=== PATIENT | male | born 1965 | race Caucasian/White ===

== ENCOUNTER 2018-05-13 17:48 | Inpatient (IN) | payer MEDICAID ==
[2018-05-13 20:47] LABS: BASO # 0.1 K/uL (0.0-0.2); BASO % 0.8 % (0.0-2.0); EOS # 0.3 K/uL (0.0-0.7); EOS % 4.1 % (0.0-4.0); HEMOGLOBIN 14.5 g/dL (12.0-18.0); LYMPH # 2.6 K/uL (1.0-4.3); LYMPH % 35.1 % (20.0-40.0); MEAN CORPUSCULAR HEMOGLOBIN 30.6 pg (27.0-31.0); MEAN CORPUSCULAR HGB CONC 34.3 g/dL (33.0-37.0); MEAN PLATELET VOLUME 7.8 fL (7.2-11.7); MONO # 0.6 K/uL (0.0-0.8); MONO % 7.9 % (0.0-10.0); NEUT # 3.8 K/uL (1.8-7.0); NEUT % 52.1 % (50.0-75.0); RBC 4.74 Mil/uL (4.40-5.90); RED CELL DISTRIBUTION WIDTH 13.1 % (11.5-14.5); WHITE BLOOD COUNT 7.3 K/uL (4.8-10.8)
[2018-05-13 20:57] LABS: URINE BILIRUBIN NEGATIVE (NEGATIVE); URINE BLOOD NEGATIVE (NEGATIVE); URINE CLARITY Hazy (Clear); URINE GLUCOSE (UA) NORMAL (Normal); URINE LEUKOCYTE ESTERASE NEG Leu/uL (Negative); URINE PROTEIN 1+ mg/dL (NEGATIVE)
[2018-05-13 21:05] LABS: BENZODIAZEPINES, UR NEGATIVE (NEGATIVE); PHENCYCLIDINE, UR NEGATIVE (NEGATIVE)
--- NOTE | 2018-05-13 21:07 | C.PDOC ---
History Of Present Illness Patient is a 53 year old male who presents to the ED requesting detox from heroin which he last did at 4pm today. He also admits to doing crack, cocaine, and drinking alcohol today. He denies any SI/HI, hallucinations, CP, SOB, or me dical complaints at the present moment. Time Seen by Provider: 05/13/18 19:59 Chief Complaint (Nursing): Substance Abuse History Per: Patient History/Exam Limitations: no limitations Suicide/Self Injury Attempted (Context): None Associated Symptoms: denies: Suicidal Thoughts, Suicidal Plan Involuntary Hold By: None Recent travel outside of the [place]: No Additional History Per: Patient Past Medical History Reviewed: Historical Data, Nursing Documentation, Vital Signs Vital Signs: Last Vital Signs Temp 98.2 F 05/13/18 20:55 Pulse 60 05/13/18 20:55 Resp 16 05/13/18 20:55 BP 126/74 05/13/18 20:55 Pulse Ox 98 05/13/18 20:55 - Medical History PMH: No Chronic Diseases Surgical History: No Surg Hx Family History: States: No Known Family Hx - Social History Hx Alcohol Use: Yes Hx Substance Use: Yes - Immunization History Hx Tetanus Toxoid Vaccination: No Hx Influenza Vaccination: No Hx Pneumococcal Vaccination: No Review Of Systems Constitutional: Negative for: Fever, Chills Cardiovascular: Negative for: Chest Pain Respiratory: Negative for: Shortness of Breath Psych: Negative for: Suicidal ideation, Other (HI/ hallucinations) Physical Exam - Physical Exam Appears: Non-toxic, No Acute Distress Skin: Normal Color, Warm, Dry Head: Atraumatic, Normacephalic Neck: Normal ROM, Supple Chest: Symmetrical, No Deformity Cardiovascular: Rhythm Regular, No Murmur Respiratory: Normal Breath Sounds, No Rales, No Rhonchi, No Wheezing Gastrointestinal/Abdominal: Soft, No Tenderness Neurological/Psych: Oriented x3 ED Course And Treatment - Laboratory Results Result Diagrams: 05/13/18 20:44 05/13/18 20:44 O2 Sat by Pulse Oximetry: 98 (on RA) Pulse Ox Interpretation: Normal Medical Decision Making Medical Decision Making: Plan: EKG Labs Urinalysis Patient evaluated by crisis, medically cleared, and accepted for detox by Dr. Ratliff. Disposition - Disposition Disposition: HOSPITALIZED Disposition Time: 22:28 Condition: STABLE - Clinical Impression Clinical Impression: Opiate abuse, continuous - Scribe Statement The provider has reviewed the documentation as recorded by the Corrieibchris Gabriel All medical record entries made by the Scribe were at my direction and personally dictated by me. I have reviewed the chart and agree that the record accurately reflects my personal performance of the history, physical exam, medical decision making, and the department course for this patient. I have also personally directed, reviewed, and agree with the discharge instructions and disposition.
[2018-05-13 21:08] LABS: ALB/GLOB RATIO 1.5 (1.0-2.1); ALBUMIN 4.4 g/dL (3.5-5.0); ALT/SGPT 30 U/L (21-72); AST/SGOT 37 U/L (17-59); BARBITURATES, UR POSITIVE (NEGATIVE); BLOOD UREA NITROGEN 11 mg/dL (9-20); CALCIUM 9.3 mg/dl (8.6-10.4); GFR NON-AFRICAN AMERICAN > 60; OPIATES, UR POSITIVE (NEGATIVE)
[2018-05-13 21:12] LABS: URINE COLOR YELLOW (YELLOW)
--- NOTE | 2018-05-13 22:43 | PCM.BM ---
<Perry Simental - Last Filed: 05/13/18 22:41> Treatment Plan Problems - Problems identified on initial assessmt knowledge deficit: substance use Date Initiated: 05/13/18 Time Initiated: 22:42 Assessment reference: NA Status: Active defensive coping Date Initiated: 05/13/18 Time Initiated: 22:42 Assessment reference: NA Status: Active chronic low self esteem Date Initiated: 05/13/18 Time Initiated: 22:45 Assessment reference: NA Status: Active Treatment assets and liabiliti Patient Assests: cooperative Patient Liabilities: substance abuse - Milieu Protocol Maintain good personal hygiene: daily Encourage regular showers, daily Remind patient to perform daily oral care, daily Assist patient to perform ADL's Maintain personal safety: every shift Educate patient to report safety concerns to staff, every shift Monitor environment for contraband/sharps Medication safety: Monitor for expected outcome, potential side effects: every shift, Assess barriers to learning: every shift, Assess readiness for medication education: every shift <Claudia Abebe - Last Filed: 05/14/18 13:00> Treatment Plan Problems - Problems identified on initial assessmt knowledge deficit: substance use Date Initiated: 05/13/18 Time Initiated: 22:42 Assessment reference: NA Status: Active defensive coping Date Initiated: 05/13/18 Time Initiated: 22:42 Assessment reference: NA Status: Active chronic low self esteem Date Initiated: 05/13/18 Time Initiated: 22:45 Assessment reference: NA Status: Active Problem 1 Date Initiated: 05/13/18 Time Initiated: 22:45 Assessment reference: NA Status: Active Family Contact Family involvement: No known Family/SO - Goals for Treatment Patient goals for treatment: Complete detox and transition to [facility] inpatient rehab. Discharge/Continuing Care - Education Needs Education Needs: Patient Medication, Patient Diagnosis/Disease Process, Patient Coping Skills, Patient Anger Management skills, Patient Placement options, Patient Community resources, Patient Other (diabetic care) - Discharge Discharge Criteria: Ability to care for self, No longer exhibiting s/s of withdrawal, Reduction of target symptoms Discharge to:: Substance Abuse Rehab - Treatment Team Participation Patient/Family/SO Statement: 05/14/18 12:59 "I need to go somewhere long-term..." Discussed with Family/SO: No Was Patient/Family/SO present at Treatment Team Meeting: Yes
[2018-05-14] MEDS ORDERED: Aluminum Hydroxide/Magnesium Hydroxide Susp (30 mL) PO PRN (09:47)
[2018-05-14] MEDS: Metoprolol Succinate 25 mg XL Tab PO SCH ×2 (11:00→17:25)
--- NOTE | 2018-05-14 13:00 | PCM.PSYCH ---
Initial Psychiatric Evaluation - Initial Psychiatric Evaluation Type of Admission: Voluntary Legal Status: Capacity Chief Complaint (in patient's own words): "Not doing well" History of Present Illness and Precipitating Events: Patient is seen, chart reviewed and case discussed with staff. Patient is a 53 YO male, currently single with four children ages 21-32. He is homeless, at the time living on the streets and unemployed. Admitted to detox unit for heroin, cocaine and alcohol use. He started using heroin 6 months ago, reports using 7 bags/day via sniffing and IV. His last use was 4 pm yesterday. He has never been to a detox facility and never had rehab. He is currently experiencing withdrawal symptoms of nausea, vomiting and chills. COWS>10 Of note, he OD'ed on fentanyl 1-2 months ago Patient also reports to using cocaine 2 bags/day, alcohol a bottle/day and smoking tobacco 1 pack per day. Psych hx: He denies any prior hospitalizations but he currently feels agitated, frustrated and anxious about his life. He has received depression medications in residential. He does not report suicidal or homicidal ideations now, no nuno or psychosis. Fam psych: Denies PHMx: DM - ignoring care bc of drug use Meds: Metformin, Gabapentin, metropolol, glimepiride Current Medications: Active Medications Generic Name Dose Route Start Last Admin Trade Name Freq PRN Reason Stop Dose Admin Al Hydrox/Mg Hydrox/Simethicone 30 ml 05/14/18 09:47 Maalox 30 Ml PO TID PRN Indigestion / Heartburn Clonidine HCl 0.1 mg 05/14/18 09:47 Catapres PO Q4 PRN COWS Score More or Equal to 5 Gabapentin 300 mg 05/14/18 10:00 05/14/18 11:00 Neurontin PO 300 mg BID MELVIN Administration Glimepiride 4 mg 05/14/18 10:00 05/14/18 11:00 Amaryl PO 4 mg ACB MELVIN Administration Hydroxyzine HCl 50 mg 05/14/18 09:45 Atarax PO Q6H PRN Anxiety Ibuprofen 600 mg 05/14/18 09:45 Motrin Tab PO Q6H PRN Pain, moderate (4-7) Loperamide HCl 2 mg 05/14/18 09:47 Imodium PO Q8 PRN Diarrhea Metformin HCl 1,000 mg 05/14/18 10:00 05/14/18 11:00 Glucophage PO 1,000 mg BIDCC MELVIN Administration Metoprolol Succinate 25 mg 05/14/18 10:00 05/14/18 11:00 Toprol Xl PO 25 mg BID MELVIN Administration Ondansetron HCl 4 mg 05/14/18 09:47 Zofran Tab PO Q8 PRN Nausea/Vomiting Pneumococcal Polyvalent Vaccine 0.5 ml 05/17/18 10:00 Pneumovax 23 Vaccine IM 05/17/18 10:01 .ONCE ONE Trazodone HCl 100 mg 05/14/18 09:45 Desyrel PO HS PRN Insomnia Past Psychiatric History - Past Psychiatric History Pertinent Medical Hx (Current Medical&Sleep Prob, Allergies): Allergies Allergy/AdvReac Type Severity Reaction Status Date / Time No Known Allergies Allergy Verified 05/13/18 18:10 Cyanocobalamin (Vitamin B-12) [Vitamin B-12] 1,000 mcg PO DAILY 05/13/18 Gabapentin 300 mg PO BID 05/13/18 Glimepiride [amaRYL] 4 mg PO DAILY 05/13/18 MetFORMIN [glucOPHAGE] 1,000 mg PO BID 05/13/18 Metoprolol Succinate 25 mg PO BID 05/13/18 Review of Systems - Psychiatric Psychiatric: Abnormal Sleep Pattern, Anhedonia, Anxiety, Change in Appetite, Depression, Difficulty Concentrating, Mood Swings. absent: Hallucinations, Homicidal Ideation, Paranoia, Suicidal Ideation Mental Status Examination - Personal Presentation Personal Presentation: Looks older than stated age - Affect Affect: Constricted - Motor Activity Motor Activity: Calm - Reliability in Providing Information Reliability in Providing Information: Good - Speech Speech: Organized - Mood Mood: Depressed, Anxious - Formal Thought Process Formal Thought Process: No Impairment - Cognitive Functions Orientation: Person, Place, Situation, Time Sensorium: Alert Attention/Concentration: Attentive Estimate of Intelligence: Average Judgement: Intact, as evidence by: Insight regarding need for hospitalization Memory: Recent intact, as evidence by: Ability to recall events of the day, Hood te intact, as evidenced by: Abilit to recall sig. 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 Attend groups and activities Supportive therapy and psychoeducation MD for abstinence CBT for relapse prevention Encourage MAT Refer to rehab or IOP, and self-help groups Teach healthy lifestyle methods, i.e. diet, exercise, meditation Smoking cessation with MD Nicotine patch if needed 34 min Projected ELOS: 4-5 days
[2018-05-14] MEDS ORDERED: Buprenorphine Hydrochloride 2 mg SL ONE ×2 (15:34→16:35)
[2018-05-15] MEDS: Metoprolol Succinate 25 mg XL Tab PO SCH ×2 (09:30→17:35)
[2018-05-15] MEDS: Buprenorphine Hydrochloride 2 mg SL SCH (09:31)
[2018-05-16] MEDS: Buprenorphine Hydrochloride 2 mg SL SCH (09:10)
[2018-05-16] MEDS: Metoprolol Succinate 25 mg XL Tab PO SCH ×2 (09:10→17:06)
--- NOTE | 2018-05-16 14:09 | PCM.PYCHPN ---
Psychiatric Progress Note - Psychiatric Progress Note Patient seen today, length of contact: 17 min Patient Chief Complaint: "So so" Problems Identified/Issues Discussed: The pt is seen, chart reviewed, case discussed with staff. The pt is compliant with medications and reports no side-effects. Symptoms are improving but needs more time to stabilize. Pt attends groups and activities. Support given, psycho-education provided. After care discussed. Medication Change: Yes (detox changes daily) Medical Record Reviewed: Yes Mental Status Examination - Cognitive Function Orientation: Person, Place, Situation, Time Memory: Intact Attention: WNL Concentration: Poor Association: WNL Fund of Knowledge: WNL - Mood Mood: Depressed, Anxious - Affect Affect: Constricted - Speech Speech: Appropriate - Formal Thought Process Formal Thought Process: No Impairment - Suicidal Ideation Suicidal Ideation: No - Homicidal Ideation Homicidal Ideation: No Goal/Treatment Plan - Goal/Treatment Plan Need for Continued Stay: Discharge may exacerbated symptoms, Severe functional impairment Progress Toward Problem(s) and Goals/Treatment Plan: Taper with subutex Gabapentin for augmentation Continue medical meds As needed medications All risks, benefits and alternatives of the meds discussed, and the pt agreed and understood. Attend groups and activities Supportive therapy and psychoeducation DE for abstinence CBT for relapse prevention Encourage MAT Refer to rehab or IOP, and self-help groups Teach healthy lifestyle methods, i.e. diet, exercise, meditation Smoking cessation with DE Nicotine patch if needed
--- NOTE | 2018-05-16 14:10 | PCM.PYCHPN ---
Psychiatric Progress Note - Psychiatric Progress Note Patient seen today, length of contact: 17 min Patient Chief Complaint: "So so" Problems Identified/Issues Discussed: The pt is seen, chart reviewed, case discussed with staff. The pt is compliant with medications and reports no side-effects. Symptoms are improving but needs more time to stabilize. Pt attends groups and activities. Support given, psycho-education provided. After care discussed. Medication Change: Yes (detox changes daily) Medical Record Reviewed: Yes Mental Status Examination - Cognitive Function Orientation: Person, Place, Situation, Time Memory: Intact Attention: WNL Concentration: Poor Association: WNL Fund of Knowledge: WNL - Mood Mood: Depressed, Anxious - Affect Affect: Constricted - Speech Speech: Appropriate - Formal Thought Process Formal Thought Process: No Impairment - Suicidal Ideation Suicidal Ideation: No - Homicidal Ideation Homicidal Ideation: No Goal/Treatment Plan - Goal/Treatment Plan Need for Continued Stay: Discharge may exacerbated symptoms, Severe functional impairment Progress Toward Problem(s) and Goals/Treatment Plan: Taper with subutex Gabapentin for augmentation Continue medical meds As needed medications All risks, benefits and alternatives of the meds discussed, and the pt agreed and understood. Attend groups and activities Supportive therapy and psychoeducation ME for abstinence CBT for relapse prevention Encourage MAT Refer to rehab or IOP, and self-help groups Teach healthy lifestyle methods, i.e. diet, exercise, meditation Smoking cessation with ME Nicotine patch if needed
--- NOTE | 2018-05-17 08:35 | PCM.PYCHDC ---
Mental Status Examination - Mental Status Examination Orientation: Person Discharge Summary - Discharge Note Laboratory Data: Abnormal Lab Results 05/17/18 07:33 POC Glucose (mg/dL) 113 H Consultations:: List each consultation separately and include: 1. Reason for request. 2. Findings. 3. Follow-up Summary of Hospital Course include:: 1. Description of specific treatment plan utilized for patients during their course of treatmen. 2. Summarize the time- course for resolution of acute symptoms and/or regressed behaviors. 3. Describe issues identified and worked on during hospitalization. 4. Describe medication utilized. 5. Describe medical problems identified and treated. 6. Reassessment of suicide risk Summary of Hospital Course: Patient is seen, chart reviewed and case discussed with staff. Patient is a 53 YO male, currently single with four children ages 21-32. He is homeless, at the time living on the streets and unemployed. Admitted to detox unit for heroin, cocaine and alcohol use. He started using heroin 6 months ago, reports using 7 bags/day via sniffing and IV. His last use was 4 pm yesterday. He has never been to a detox facility and never had rehab. He is currently experiencing withdrawal symptoms of nausea, vomiting and chills. COWS>10 Of note, he OD'ed on fentanyl 1-2 months ago Patient also reports to using cocaine 2 bags/day, alcohol a bottle/day and smoking tobacco 1 pack per day. Psych hx: He denies any prior hospitalizations but he currently feels agitated, frustrated and anxious about his life. He has received depression medications in intermediate. He does not report suicidal or homicidal ideations now, no nuno or psychosis. Fam psych: Denies PHMx: DM - ignoring care bc of drug use Meds: Metformin, Gabapentin, metropolol, glimepiride He will go to [facility] in . - Final Diagnosis (DSM 5) Condition upon Discharge: STABLE Disposition: REHAB FACILITY/REHAB UNIT Follow-up Treatment Plan: Taper with subutex Gabapentin for augmentation Continue medical meds As needed medications All risks, benefits and alternatives of the meds discussed, and the pt agreed and understood. Attend groups and activities Supportive therapy and psychoeducation CA for abstinence CBT for relapse prevention Encourage MAT Refer to rehab or IOP, and self-help groups Teach healthy lifestyle methods, i.e. diet, exercise, meditation Smoking cessation with CA Nicotine patch if needed Prescriptions/Medication Reconciliation: Glimepiride [amaRYL] 4 mg PO DAILY #30 tab metFORMIN [glucOPHAGE] 1,000 mg PO BIDCC #60 tab Metoprolol Succinate 25 mg PO BID #60 tab.er.24h traZODone [Desyrel] 100 mg PO HS PRN #30 tab PRN Reason: Insomnia
[2018-05-17] MEDS: Buprenorphine Hydrochloride 2 mg SL SCH (09:05)
[2018-05-17] MEDS: Metoprolol Succinate 25 mg XL Tab PO SCH (09:05)
[2018-05-17] MEDS ORDERED: Pneumococcal 23-Valent Vaccine IM ONE (10:00)
[2018-05-17 10:10] VITALS: BP 139/85; PULSE 57; RESP 18; TEMP 97.4; O2SAT 99
--- NOTE | 2018-05-18 19:26 | CARD ---
APPROVED REPORT Date of service: 05/13/2018 EKG Measurement Heart [id number] <Conclusion> Normal sinus rhythm Ventricular pre-excitation, WPW pattern type B Abnormal ECG
== END 2018-05-17 10:41 | disposition home or self-care (01) | DRG 745 ==
LOC: C.ER 17:48 → C.7D 22:28
PROC: HZ52ZZZ Individual Psychotherapy for Substance Abuse Treatment, Cognitive-Behavioral (ICD-10-PCS; principal; 2018-05-13)
PROC: HZ2ZZZZ Detoxification Services for Substance Abuse Treatment (ICD-10-PCS; 2018-05-13)
PROC: HZ59ZZZ Individual Psychotherapy for Substance Abuse Treatment, Supportive (ICD-10-PCS; 2018-05-13)
PROC: HZ56ZZZ Individual Psychotherapy for Substance Abuse Treatment, Psychoeducation (ICD-10-PCS; 2018-05-13)
PROC: HZ42ZZZ Group Counseling for Substance Abuse Treatment, Cognitive-Behavioral (ICD-10-PCS; 2018-05-13)
PROC: HZ46ZZZ Group Counseling for Substance Abuse Treatment, Psychoeducation (ICD-10-PCS; 2018-05-13)
PROC: GZHZZZZ Group Psychotherapy (ICD-10-PCS; 2018-05-13)
PROC: GZ58ZZZ Individual Psychotherapy, Cognitive-Behavioral (ICD-10-PCS; 2018-05-13)
PROC: GZ56ZZZ Individual Psychotherapy, Supportive (ICD-10-PCS; 2018-05-13)
DX: F11.23 Opioid dependence with withdrawal (principal); F13.230 Sedative, hypnotic or anxiolytic dependence with withdrawal, uncomplicated; F32.9 Major depressive disorder, single episode, unspecified; F14.20 Cocaine dependence, uncomplicated; F17.210 Nicotine dependence, cigarettes, uncomplicated; E11.9 Type 2 diabetes mellitus without complications; Z59.0 Homelessness